=== PATIENT | male | born 1960 | race Two or more races ===

== ENCOUNTER 2016-12-10 12:31 | Emergency (ER) | payer SELFPAY ==
[~2016-12-10] VITALS: Ht 162.6 cm; Wt 63.5 kg
--- NOTE | 2016-12-10 12:40 | NUR ---
Dr Bailey at the bedside for eval and exam.
[2016-12-10] MEDS ORDERED: IV NORMAL SALINE 1000 ML BAG IV ONE (12:45)
--- NOTE | 2016-12-10 13:18 | NUR ---
Pt back from CT.
[2016-12-10 13:59] LABS: BASOPHILS % (AUTO) 0.7 % (0.0-2.0); EOSINOPHILS # (AUTO) 0.1 K/uL (0.0-0.7); EOSINOPHILS % (AUTO) 1.3 % (0.0-7.0); HEMATOCRIT 43.3 % (36.7-47.1); HEMOGLOBIN 14.8 g/dL (12.5-16.3); LYMPHOCYTES # (AUTO) 1.3 K/uL (20.0-40.0); LYMPHOCYTES % (AUTO) 25.1 % (20.5-51.5); MEAN CORPUSCULAR HEMOGLOBIN 32.6 uug (23.8-33.4); MEAN CORPUSCULAR HGB CONC 34 g/dL (32.5-36.3); MEAN CORPUSCULAR VOLUME 95.8 fL (73.0-96.2); MONOCYTES # (AUTO) 0.3 K/uL (2.0-10.0); MONOCYTES % (AUTO) 6.3 % (0.0-11.0); NEUTROPHILS # (AUTO) 3.4 K/uL (1.8-8.9); NEUTROPHILS % (AUTO) 66.6 % (38.5-71.5); PLATELET COUNT (AUTO) 189 K/uL (152-348); RED BLOOD CELL COUNT(AUTO) 4.53 MIL/uL (4.06-5.63); WHITE BLOOD COUNT (AUTO) 5.2 K/uL (3.6-10.2)
[2016-12-10 14:07] LABS: ALANINE AMINOTRANSFERASE 48 U/L (16-63); ALKALINE PHOSPHATASE 94 U/L (50-136); ASPARTATE AMINOTRANSFERASE 55 U/L (15-37); BILIRUBIN,DIRECT 0.2 mg/dL (0.0-0.2); BILIRUBIN,TOTAL 0.7 mg/dL (0.2-1.0); CARBON DIOXIDE 22 mmol/L (21-32); CHLORIDE 96 mmol/L (98-107); CREATININE 0.7 mg/dL (0.6-1.3); GLUCOSE 98 mg/dL (74-106); POTASSIUM 3.4 mmol/L (3.5-5.1); TOTAL PROTEIN, SERUM 7.5 g/dL (6.4-8.2); UREA NITROGEN, BLOOD 13 mg/dL (7-18)
[2016-12-10 14:10] LABS: ETHANOL 443 MG/DL (0-0)
[2016-12-10 14:22] LABS: ACETAMINOPHEN < 2.0 ug/mL (10-30)
[2016-12-10 14:24] LABS: THYROID STIMULATING HORMONE 0.972 mIU/mL (0.358-3.740)
--- NOTE | 2016-12-10 16:21 | NUR ---
Patient is resting comfortably in bed with eyes closed, NAD noted.
--- NOTE | 2016-12-10 18:04 | NUR ---
Pt remaines drowsy but arousable w/ tactile stimuli, bahamian speaking only.
--- NOTE | 2016-12-10 20:23 | NUR ---
Patient is resting comfortably in bed with eyes closed
--- NOTE | 2016-12-10 22:32 | NUR ---
Patient given written and verbal discharge instructions. Patient verbalizes understanding of instructions. Patient is ambulatory with steady gait. Refuses offer of snf placement. Patient given list of available shelters in surrounding area.
== END 2016-12-10 22:34 | disposition home or self-care (01) ==
LOC: ER 12:31
DX: T51.91XA Toxic effect of unspecified alcohol, accidental (unintentional), initial encounter (principal); R91.1 Solitary pulmonary nodule; Y92.9 Unspecified place or not applicable
CPT/HCPCS: 36415; 70030-TC; 70450; 71010; 72125; 84443; 85025; 85730; 93005; A4663; G0480; G0480-TC